=== PATIENT | female | born 1995 | race Caucasian/White ===

== ENCOUNTER → 2017-07-16 14:12 | Outpatient (CLI) | payer OTHER, SELFPAY ==
[2017-07-16 15:33] LABS: Absolute Lymphocyte Count 3.05 X10^3/ul (0.83-4.51); Absolute Neutrophil Count 3.1 X10^3/uL (2.0-7.7); Basophil# 0.02 X10^3/uL; Basophil% 0.3 % (0-1); Eosinophil# 0.11 X10^3/uL; Eosinophils% 1.6 % (0-5); Hematocrit 42.6 % (37-47); Hemoglobin 14.3 g/dl (12.0-15.0); Lymphocyte # 3.05 X10^3/ul (4.0); Lymphocyte % 43.3 % (19-41); Mean Corp Hgb Conc 33.6 g/gl (32-36); Mean Corpuscular Hgb 29.2 pg (27.0-32.0); Mean Corpuscular Volume 87.1 fL (81-99); Monocyte% 11.3 % (0-10); Neutrophil # 3.06 X10^3/uL (2.7-7.7); Neutrophil % 43.4 % (47-70); Platelet Count 241 K/mm3 (150-450); RBC Distribution Width CV 12.9 % (11.6-14.6); RBC Distribution Width SD 40.5 fl (35.1-43.9); Red Blood Count 4.89 M/mm3 (4.2-5.4); White Blood Count 7.1 K/mm3 (4.4-11.0)
[2017-07-16 15:35] LABS: POSITIVE COUNT NO; POSITIVE DIFFERENTIAL NO; POSITIVE MORPHOLOGY NO
[2017-07-16 16:43] LABS: Prolactin 5.2 ng/mL; T4 Free Direct 0.93 ng/dL (0.76-1.46); Thyroid Stim Hormone (TSH) 2.11 uIU/mL (0.358-3.74)
[2017-07-19 14:30] LABS: Vitamin D 1,25-Dihydroxy 35.8 pg/mL (19.9-79.3)
== END ==
PROVIDERS: Visit Provider Obstetrics & Gynecology
DX: N93.9 Abnormal uterine and vaginal bleeding, unspecified (principal)
CPT/HCPCS: 36415; 82652; 84146; 84439; 84443; 85025

== ENCOUNTER → 2017-08-09 13:37 | Outpatient (CLI) | payer OTHER, SELFPAY ==
--- NOTE | 2017-08-09 13:39 | US_ITS ---
STUDY: ULTRASOUND TRANSVAGINAL CLINICAL: Female, 22 years old. Pelvic pain TECHNIQUE: Transabdominal and Transvaginal COMPARISON: None. FINDINGS: Normal uterine size measuring 8.1 x 3.9 x 3.6 cm in maximal craniocaudal dimension. There are no myometrial masses. Normal endometrial thickness measuring 4 mm. There are no endometrial masses, and there is no fluid in the endometrial cavity. Normal uterine cervix. Normal right ovary, measuring 2.5 x 2.1 x 2.0 cm. There are multiple follicles without a dominant cyst. Normal left ovary, measuring 2.0 x 1.4 x 1.1 cm. There are multiple follicles without a dominant cyst. There is no free fluid in the pelvis. Polycystic ovary disease: No. Normal bladder contour. US/Transvaginal Non- IMPRESSION: Within normal limits. Electronically Signed: Kaden Palmer MD at 23:47 EDT , Service support ,
--- NOTE | 2017-08-09 13:39 | US_ITS ---
STUDY: ULTRASOUND TRANSVAGINAL CLINICAL: Female, 22 years old. Pelvic pain TECHNIQUE: Transabdominal and Transvaginal COMPARISON: None. FINDINGS: Normal uterine size measuring 8.1 x 3.9 x 3.6 cm in maximal craniocaudal dimension. There are no myometrial masses. Normal endometrial thickness measuring 4 mm. There are no endometrial masses, and there is no fluid in the endometrial cavity. Normal uterine cervix. Normal right ovary, measuring 2.5 x 2.1 x 2.0 cm. There are multiple follicles without a dominant cyst. Normal left ovary, measuring 2.0 x 1.4 x 1.1 cm. There are multiple follicles without a dominant cyst. There is no free fluid in the pelvis. Polycystic ovary disease: No. Normal bladder contour. US/Pelvic (Non ) IMPRESSION: Within normal limits. Electronically Signed: Kaden Palmer MD at 23:47 EDT , Service support ,
== END ==
PROVIDERS: Visit Provider Nurse Practitioner Women's Health
DX: R10.2 Pelvic and perineal pain (principal)
CPT/HCPCS: 76830; 76856; 93976

== ENCOUNTER 2018-12-08 13:23 | Emergency (ER) | payer OTHER, SELFPAY ==
[2018-12-08 13:24] VITALS: BP 117/73; PULSE 75; RESP 17; TEMP 36.8; O2SAT 98; BMI 27.1
[2018-12-08] MEDS: proCHLORPERazine 10 MG/2 ML Vial IV (13:56)
[2018-12-08] MEDS: DiphenhydrAMINE 50 MG/ML Syringe IV (13:57)
[2018-12-08] MEDS: 0.9% Normal Saline 1,000 ML 999 ML IV (13:57)
[2018-12-08] MEDS: Ketorolac 30 MG/ML Syringe IV (13:57)
--- NOTE | 2018-12-08 13:57 | ED.VIS.GEN ---
History of Present Illness Chief Complaint: Headache Informant: Patient Onset: Days Context: Gradual Onset Timing: Intermittent Current Severity: Moderate Maximum Severity: Moderate Narrative: Patient presents to the emergency department with headache. Patient has a history of migraine. She states this feels like her normal migraine. She did try her triptan at home with little improvement. She states throughout the day, she is had some increasing pressure behind both of her eyes. She does admit to nausea and vomiting. She denies any trauma. She denies any fevers or chills. She denies any other systemic symptoms. Prior similar symptoms: Yes Recent Illness/Hospitalization: No Past Medical History - Allergies and Home Meds Allergies/Adverse Reactions: Allergies No Known Allergies Allergy (Verified 12/08/18 13:24) Primary Care Physician: Olaf Villanueva MD [Primary Care Provider] - Prior records reviewed: Yes Past Medical History: - - Migraines Smoking Status: Never smoker Review of Systems General: Denies: Chills, Fever, Sweats Eyes: Denies: Visual changes - bilaterally, Diplopia ENT: Denies: Rhinorrhea, Sore throat Cardiovascular: Denies: Chest pain, Palpitations Respiratory: Denies: Dyspnea, Cough, Dyspnea on exertion Gastrointestinal: Reports: Nausea. Denies: Abdominal pain, Vomiting, Diarrhea, Melena, Hematochezia Genitourinary: Denies: Dysuria, Hematuria, Frequency Musculoskeletal: Denies: Back pain, Extremity Pain Skin: Denies: Rash, Wounds Neurological: Reports: Headache. Denies: Weakness, Numbness Psych: Denies: Depression Endocrine: Denies: Polyuria Physical Exam Vital Signs/Narrative: Vital Signs Temp Pulse Resp BP Pulse Ox 12/08/18 13:24 98.2 F 75 17 117/73 98 Inital Vital Signs reviewed: Yes General: Well nourished, Well developed, No Acute Distress Head: Normocephalic, Atraumatic Eyes: Perrl, EOMI ENT: Moist mucous membranes, No rhinorrhea Neck: Supple, Nontender Cardiovascular: Regular rate, Regular rhythm, No murmurs Respiratory: No distress, CTA bilaterally, Chest nontender Abdomen: Soft, Nontender, Nondistended, Normal bowel sounds Back: Nontender, Normal Inspection Extremities: Nontender, No edema Skin: Normal color, No rash Neurological: Alert, Oriented x3, Cranial nerves II-XII grossly intact, Normal Strength, Normal Sensation Psychological: Normal affect, Normal Mood Diagnostic/Tx/Re-eval - Medical Decision Making The patient presents with a normal migraine. Her examination is reassuring. She is not meningitic. She is not encephalopathic. IV was established. The patient was treated with migraine abortive medications. Within an hour, she had total resolution of her headache. At this point, I do feel that she is safe for outpatient therapy. She is comfortable with this plan of care. She will be discharged home. Impression 1. Migraine headache ED Disposition - Plan for ED Patient: Disposition: Home or Assisted Living Instructions: ED, Migraine (Classical) Referrals: Olaf Villanueva MD [Primary Care Provider] -
[2018-12-08 15:12] VITALS: BP 114/73; PULSE 75; RESP 16; O2SAT 99
== END 2018-12-08 15:12 | disposition home or self-care (01) ==
LOC: ED 13:51
PROVIDERS: Emergency Provider Emergency Medicine; Family Provider Family Medicine; PCP Family Medicine
DX: G43.909 Migraine, unspecified, not intractable, without status migrainosus (principal)
CPT/HCPCS: 96361; 96374; 96375; 99283

== ENCOUNTER 2021-08-03 14:13 | Outpatient (CLI) | payer OTHER, SELFPAY ==
[2021-08-08 12:01] LABS: Chlamydia By Nucleic Acid AMP Negative (Negative)
[2021-08-08 12:27] LABS: Gonococcus By Nucleic Acid AMP Negative (Negative)
[2021-08-09 21:37] LABS: HPV Reflexed? NOT INDICATED
== END 2021-08-03 23:59 | disposition home or self-care (01) ==
LOC: LABSPEC 14:14
PROVIDERS: PCP Family Medicine; Visit Provider Obstetrics & Gynecology
DX: Z12.4 Encounter for screening for malignant neoplasm of cervix (principal); Z11.3 Encounter for screening for infections with a predominantly sexual mode of transmission
CPT/HCPCS: 87491; 87591; 88175; G0145

== ENCOUNTER → 2023-03-11 | Outpatient (CLI) | payer OTHER, MEDICAID, SELFPAY ==
[2023-03-11 17:41] LABS: hCG Titer Quant., Serum 27504 mIU/mL (1-3)
== END | disposition home or self-care (01) ==
PROVIDERS: PCP Family Medicine; Referring Provider Nurse Practitioner Women's Health; Visit Provider Nurse Practitioner Women's Health
DX: N91.2 Amenorrhea, unspecified (principal)
CPT/HCPCS: 36415; 84702

== ENCOUNTER → 2023-03-15 | Outpatient (CLI) | payer OTHER, MEDICAID, SELFPAY ==
[2023-03-15 10:27] LABS: hCG Titer Quant., Serum 49958 mIU/mL (1-3)
== END | disposition home or self-care (01) ==
PROVIDERS: PCP Nurse Practitioner Family; Referring Provider Obstetrics & Gynecology; Visit Provider Obstetrics & Gynecology
DX: O20.9 Hemorrhage in early pregnancy, unspecified (principal); Z3A.00 Weeks of gestation of pregnancy not specified
CPT/HCPCS: 36415; 84702

== ENCOUNTER → 2023-03-18 | Outpatient (CLI) | payer OTHER, MEDICAID, SELFPAY ==
--- NOTE | 2023-03-18 07:57 | US_ITS ---
STUDY: FIRST TRIMESTER OBSTETRICAL ULTRASOUND REASON FOR EXAM: Female, 27 years old dating LMP: 01/01/2023 TECHNIQUE: Transabdominal and Transvaginal TECHNICAL QUALITY: Adequate. PRIOR ULTRASOUND: None. FINDINGS: There is visualization of a single gestational sac in a normal intrauterine position. The mean sac diameter (MSD) measures 2.44 cm, indicating an estimated gestational age (EGA) of 7 weeks, 3 days. The gestational sac shape is within normal limits. There is a visualized yolk sac. The yolk sac measures 0.55 cm. There is visualization of the placenta. There is visualization of a live embryo. The crown-rump length (CRL) measures 0.96 cm, indicating an estimated gestational age (EGA) of 7 weeks, 1 days. There is demonstrated cardiac activity with a heart rate of 120 bpm. The estimated gestation age (EGA) by LMP is 10 weeks, 6 days. The estimated date of delivery (TAMMIE) by LMP is 10/08/2023. The estimated gestation age (EGA) by US is 7 weeks, 2 days. The estimated date of delivery (TAMMIE) by US is 11/02/2023. The uterus measures 11.5 x 6.5 x 5.1 cm. There is no demonstrated uterine fibroid. The cervix is closed. The right ovary measures 3.8 x 2.3 x 2.2 cm. There is no right ovarian cyst. There is no visualized right adnexal mass or complex lesion. The left ovary measures 6.1 x 2.8 x 2.3 cm. There is a complex 2.6 x 2.5 x 2.2 cm cyst likely the corpus luteal cyst. There is minimal fluid in the cul de sac. US/Transvaginal w/Preg US IMPRESSION: Single live intrauterine at 7 weeks 2 days by current ultrasound with TAMMIE of 11/02/2023. Heart rate at 120 bpm. No suspicious sonographic findings. Electronically Signed: Marcin Stewart MD at 10:13 EST ,
== END | disposition home or self-care (01) ==
PROVIDERS: PCP Family Medicine; Referring Provider Nurse Practitioner Women's Health; Visit Provider Nurse Practitioner Women's Health
DX: Z34.90 Encounter for supervision of normal pregnancy, unspecified, unspecified trimester (principal)
CPT/HCPCS: 76817

== ENCOUNTER → 2023-04-10 | Outpatient (CLI) | payer OTHER, MEDICAID, SELFPAY ==
[2023-04-10 15:48] LABS: Absolute Lymphocyte Count 2.88 X10^3/uL (0.83-4.51); Absolute Neutrophil Count 7.4 X10^3/uL (2.0-7.7); Basophil# 0.03 X10^3/uL; Basophil% 0.3 % (0-1); Eosinophil# 0.07 X10^3/uL; Eosinophils% 0.6 % (0-5); Hematocrit 39.1 % (37-47); Lymphocyte # 2.88 X10^3/ul (0.83-4.51); Lymphocyte % 25.2 % (19-41); Mean Corp Hgb Conc 33.2 g/dL (32-36); Mean Corpuscular Hgb 28.3 pg (27.0-32.0); Mean Platelet Vol. 10.2 fl (6.2-12.0); Monocyte# 1.01 X10^3/uL; Monocyte% 8.8 % (0-10); NRBC Flagged by Analyzer 0 % (0-5); Neutrophil # 7.36 X10^3/uL (2.7-7.7); Neutrophil % 64.5 % (47-70); Platelet Count 264 K/mm3 (150-450); RBC Distribution Width CV 13.1 % (11.6-14.6); RBC Distribution Width SD 40.1 fl (35.1-43.9); White Blood Count 11.4 K/mm3 (4.4-11.0)
[2023-04-10 16:21] LABS: ALB/GLOB Ratio 0.8 RATIO (0.9-2.4); AST(SGOT) 29 U/L (15-37); Alanine Aminotransfer ALT/SGPT 52 U/L (13-56); Albumin, Serum 3.4 g/dL (3.2-5.0); Alkaline Phosphatase 80 U/L (45-117); Anion Gap 7 (5-15); BUN 6 mg/dL (7-18); BUN/Creat Ratio 11.7 RATIO (10-20); Chloride 108 mmol/L (98-107); Creatinine, Serum 0.51 mg/dL (0.55-1.02); EST Glomerular Filtration Rate 151 mL/min (>60); Est Glom Filt Rate - Afr Amer 183 mL/min (>60); Globulin 4.3 g/dL (2.2-4.2); Glucose 82 mg/dL (74-106); Potassium 3.7 mmol/L (3.5-5.1); Protein, Total 7.7 g/dL (6.4-8.2); Sodium Level 139 mmol/L (136-145)
[2023-04-10 16:24] LABS: Hemoglobin A1c 4.8 % (3.8-5.6)
[2023-04-10 17:19] LABS: HIV - WCH Non-Reactive (Nonreactive); Hepatitis B Surface Antigen Non-Reactive (Nonreactive); Hepatitis C Antibody Non-Reactive (Nonreactive); Rubella IgG Reactive (Nonreactive); Syphilis Antibodies Non-reactive
[2023-04-15 08:07] LABS: Chlamydia By Nucleic Acid AMP Negative (Negative); Gonococcus By Nucleic Acid AMP Negative (Negative)
== END | disposition home or self-care (01) ==
PROVIDERS: PCP Nurse Practitioner Family; Referring Provider Registered Nurse; Visit Provider Registered Nurse
DX: O09.90 Supervision of high risk pregnancy, unspecified, unspecified trimester (principal)
CPT/HCPCS: 36415; 80053; 83036; 85025; 86703; 86762; 86780; 86803; 86850; 86900; 86901; 87086; 87088; 87340; 87491; 87591

== ENCOUNTER → 2023-05-10 | Outpatient (CLI) | payer OTHER, MEDICAID, SELFPAY ==
--- OUTSIDE RECORDS SUMMARY | 2023-05-10 16:50 | XMS RPT_ITS | CCD ---
Author Name Unknown Address [facility] [place] [address] Organization [facility] Care Team Providers Care Senior Project Accountant Name Role Phone YELENA PAULA Primary Care Unavailable YELENA PAULA Attending Unavailable VACCARIELLO, HALIMA Consulting Unavailable VACCARIELLO, HALIMA Referring Unavailable YELENA PAULA Admitting Unavailable PROVIDER, UNKNOWN Consulting Unavailable PROVIDER, UNKNOWN Consulting Unavailable PROVIDER, UNKNOWN Consulting Unavailable CK HORN DO Admitting Unavailable CK HORN DO Primary Care Unavailable CK HORN DO Attending Unavailable VACCARIELLO, HALIMA Consulting Unavailable VACCARIELLO, HALIMA Referring Unavailable PROVIDER, UNKNOWN Consulting Unavailable PROVIDER, UNKNOWN Consulting Unavailable PROVIDER, UNKNOWN Consulting Unavailable MADDISON SALAMANCA Admitting Unavailable MADDISON SALAMANCA Primary Care Unavailable MADDISON SALAMANCA Attending Unavailable VACCARIELLO, HALIMA Consulting Unavailable PROVIDER, UNKNOWN Consulting Unavailable PROVIDER, UNKNOWN Consulting Unavailable PROVIDER, UNKNOWN Consulting Unavailable NICOLE JENNINGS Admitting Unavailable NICOLE JENNINGS Primary Care Unavailable NICOLE JENNINGS Attending Unavailable VACCARIELLO, HALIMA Consulting Unavailable VACCARIELLO, HALIMA Referring Unavailable PROVIDER, UNKNOWN Consulting Unavailable PROVIDER, UNKNOWN Consulting Unavailable PROVIDER, UNKNOWN Consulting Unavailable Results Test Name Value Interpretation Reference Range Facil ity Encounters Encounter Date Encounter Type Care Provider Facility Start: 03-13-2023 ambulatory MADDISON SALAMANCA [facility] Start: 03-13-2023 End: 03-13-2023 Emergency department patient visit NICOLE JENNINGS [facility] Start: 10-25-2022 End: 10-25-2022 Emergency department patient visit CK LERNER [facility] Start: 09-03-2022 End: 09-03-2022 Emergency department patient visit YELENA PAULA [facility] Payers Date Payer Category Payer Unknown [id number] [id number] 1995 Unknown [id number] [id number] 1995 Unknown [id number] [id number] [id number] 1995 Unknown [id number] [id number] Unknown [id number] Unknown [id number] Summary Purpose Family History No Family History Records FoundNo Family History Records FoundNo Family History Records FoundNo Family History Records Found Advance Directives No Advanced Directives Records FoundNo Advanced Directives Records FoundNo Advanced Directives Records FoundNo Advanced Directives Records Found Additional Source Comments INFORMATION SOURCE (unrecogn ized section and content) DATE CREATED AUTHOR AUTHOR'S ORGANIZ ATION 02/25/2020 [facility] DATE CREATED AUTHOR AUTHOR'S ORGANIZ ATION 10/05/2021 [facility] DATE CREATED AUTHOR AUTHOR'S ORGANIZ ATION 03/14/2023 [facility] FOR RECORDS PERTAINING TO PATIENTS WHO ARE OR HAVE BEEN ENROLLED IN A CHEMICAL DEPENDENCY/SUBSTANCEABUSE PROGRAM, SOME INFORMATION MAY BE OMITTED. This clinical summary was aggregated from multiple sources. Caution should be exercised in using it in the provision of clinical care. This summary normalizes information from multiple sources, and as a consequence, information in this document may materially change the coding, format and clinical context of patient data. In addition, data may be omitted in some cases. CLINICAL DECISIONS SHOULD BE BASED ON THE PRIMARY CLINICAL RECORDS. [facility]. provides no warranty or guarantee of the accuracy or completeness of information in this document.
== END | disposition home or self-care (01) ==
PROVIDERS: PCP Nurse Practitioner Family; Referring Provider Registered Nurse; Visit Provider Registered Nurse
DX: Z00.00 Encounter for general adult medical examination without abnormal findings (principal)
CPT/HCPCS: 36415

== ENCOUNTER → 2023-08-09 | Outpatient (CLI) | payer MEDICAID, SELFPAY ==
[2023-08-09 13:12] LABS: Absolute Lymphocyte Count 2.27 X10^3/uL (0.83-4.51); Absolute Neutrophil Count 7.2 X10^3/uL (2.0-7.7); Basophil# 0.03 X10^3/uL; Basophil% 0.3 % (0-1); Eosinophil# 0.06 X10^3/uL; Eosinophils% 0.6 % (0-5); Hematocrit 35.5 % (37-47); Hemoglobin 11.3 g/dL (12.0-15.0); Lymphocyte # 2.27 X10^3/ul (0.83-4.51); Lymphocyte % 21.6 % (19-41); Mean Corp Hgb Conc 31.8 g/dL (32-36); Mean Corpuscular Hgb 27.2 pg (27.0-32.0); Mean Corpuscular Volume 85.5 fL (81-99); Mean Platelet Vol. 11.1 fl (6.2-12.0); Monocyte# 0.83 X10^3/uL; Monocyte% 7.9 % (0-10); NRBC Flagged by Analyzer 0 % (0-5); Neutrophil # 7.23 X10^3/uL (2.7-7.7); Neutrophil % 68.6 % (47-70); Platelet Count 254 K/mm3 (150-450); Red Blood Count 4.15 M/mm3 (4.2-5.4); White Blood Count 10.5 K/mm3 (4.4-11.0)
[2023-08-09 13:29] LABS: Glucose Challenge Gest 1H 50g 130 mg/dL (70-140)
[2023-08-09 14:03] LABS: HIV - WCH Non-Reactive (Nonreactive); Syphilis Antibodies Non-reactive
== END | disposition home or self-care (01) ==
LOC: LAB 12:23
PROVIDERS: PCP Nurse Practitioner Family; Referring Provider Registered Nurse; Visit Provider Registered Nurse
DX: Z34.90 Encounter for supervision of normal pregnancy, unspecified, unspecified trimester (principal)
CPT/HCPCS: 36415; 82950; 85025; 86703; 86780

== ENCOUNTER → 2023-08-20 | Outpatient (CLI) | payer MEDICAID, SELFPAY ==
[2023-08-20 12:42] LABS: ROM Internal Control Test YES-OK TO RESULT pt. (Internal QC); ROM Patient Test Negative (Negative)
== END | disposition home or self-care (01) ==
LOC: LABSPEC 12:18
PROVIDERS: PCP Nurse Practitioner Family; Referring Provider Obstetrics & Gynecology; Visit Provider Obstetrics & Gynecology
DX: N89.8 Other specified noninflammatory disorders of vagina (principal)
CPT/HCPCS: 84112

== ENCOUNTER 2023-09-03 12:00 | Outpatient (CLI) | payer MEDICAID, SELFPAY ==
[2023-09-03 12:15] VITALS: BMI 42.4
--- NOTE | 2023-09-13 02:58 | OB.TRI.PN ---
Progress Notes Date of Service: 09/03/23 Progress Note: Patient presents for triage evaluation secondary to decreased movement FHT: 140 Moderate variability reactive no decelerations category I tracing [place]: no regular Contractions Assessment and plan: decreased movement now feeling Reactive NST, reassuring maternal and status patient discharged to home to follow-up as sscheudled. See problem list details for additional plan information. Charges/Coding Procedures Urinary/Genital 52xxx-59xxx: 26713-17 non-stress test Interp
== END 2023-09-03 13:25 | disposition home or self-care (01) ==
LOC: WPOUT 12:04 → WP 12:05
PROVIDERS: PCP Nurse Practitioner Family; Referring Provider Advanced Practice Midwife; Visit Provider Advanced Practice Midwife
DX: O36.8190 Decreased fetal movements, unspecified trimester, not applicable or unspecified (principal); Z3A.00 Weeks of gestation of pregnancy not specified
CPT/HCPCS: 59025; 59050; 99221; G0378

== ENCOUNTER 2023-09-12 11:55 | Outpatient (CLI) | payer MEDICAID, SELFPAY ==
[2023-09-12 12:17] VITALS: BP 129/66; PULSE 109; RESP 15; TEMP 36.8; O2SAT 99
[2023-09-12 12:18] VITALS: PULSE 112; O2SAT 98
[2023-09-12 12:21] VITALS: BP 128/67; PULSE 107
[2023-09-12 13:05] VITALS: BMI 43.2
[2023-09-12 14:27] LABS: Mucous, Urine 0 SEEN /hpf (<or=2+); Red Blood Cells-Urine 0 SEEN /hpf (0-5)
[2023-09-12 14:30] LABS: Color, Urine Yellow (Yellow); Glucose, Dipstick Normal (Normal); Ketone-Dipstick 5 mg/dl (Negative); Leukocyte Esterase-Dipstick 100 /ul (Negative); Nitrite-Dipstick Negative (Negative); Occult Blood-Urine Negative /ul (Negative); Protein-Dipstick 15 mg/dl (Negative); Urine Bilirubin Dipstick Negative (Negative); Urine Clarity Cloudy (Clear); Urine Urobilinogen 1 mg/dl (Normal)
[2023-09-12 14:36] LABS: Amorphous Sediment 1+; Bacteria 3+ /hpf (None Seen); Squamous Epithelial Cells - UA 0-5 SEEN /hpf (5-10); White Blood Cells 0-5 SEEN /hpf (0-5)
--- NOTE | 2023-09-12 21:03 | OB.TRI.PN ---
Progress Notes Progress Note: Patient presents for triage evaluation secondary to contractions, seen and no dilation FHT: 130 Moderate variability reactive no decelerations category I tracing [place]: irritability Contractions Assessment and plan: threatened labor no cervical change no dilation, ua and culture sent. Reactive NST, reassuring maternal and status patient discharged to home to follow-up as scheduled. See problem list details for additional plan information. Laboratory Studies: Laboratory Tests 09/12/23 Range/Units 14:15 Urine Color Yellow (Yellow) Urine Clarity Cloudy (Clear) Urine pH 6.0 (5.0 - 8.0) Ur Specific [place] 1.020 (1.002-1.030) Urine Protein 15 H (Negative) mg/dl Urine Glucose (UA) Normal (Normal) mg/dl Urine Ketones 5 H (Negative) mg/dl Urine Occult Blood Negative (Negative) /ul Urine Nitrite Negative (Negative) Urine Bilirubin Negative (Negative) mg/dL Urine Urobilinogen 1 H (Normal) mg/dl Ur Leukocyte Esterase 100 H (Negative) /ul Urine RBC 0 SEEN (0-5) /hpf Urine WBC 0-5 SEEN (0-5) /hpf Ur Squamous Epith Cells 0-5 SEEN (5-10) /hpf Amorphous Sediment 1+ Urine Bacteria 3+ (None Seen) /hpf Urine Mucus 0 SEEN (<or=2+) /hpf Charges/Coding Procedures Urinary/Genital 52xxx-59xxx: 34606-75 non-stress test Interp
== END 2023-09-12 14:20 | disposition home or self-care (01) ==
LOC: WPOUT 12:02 → WP 12:03
PROVIDERS: PCP Nurse Practitioner Family; Referring Provider Obstetrics & Gynecology; Visit Provider Obstetrics & Gynecology
DX: O47.9 False labor, unspecified (principal); Z3A.00 Weeks of gestation of pregnancy not specified
CPT/HCPCS: 59025; 59050; 81001; 99221; G0378

== ENCOUNTER 2023-09-25 10:01 | Outpatient (CLI) | payer MEDICAID, SELFPAY ==
[2023-09-25 10:25] VITALS: BMI 43.4
[2023-09-25 10:33] VITALS: RESP 16; TEMP 37.1
[2023-09-25 10:34] VITALS: BP 119/64; PULSE 96
[2023-09-25 10:35] VITALS: PULSE 96; O2SAT 96
[2023-09-25 10:49] VITALS: BP 121/68; PULSE 90
[2023-09-25 11:03] LABS: Hematocrit 32.3 % (37-47); Hemoglobin 10.3 g/dL (12.0-15.0); Mean Corp Hgb Conc 31.9 g/dL (32-36); Mean Corpuscular Hgb 25.6 pg (27.0-32.0); Mean Corpuscular Volume 80.1 fL (81-99); Mean Platelet Vol. 11.6 fl (6.2-12.0); Platelet Count 213 K/mm3 (150-450); RBC Distribution Width SD 40.8 fl (35.1-43.9); Red Blood Count 4.03 M/mm3 (4.2-5.4); White Blood Count 7.9 K/mm3 (4.4-11.0)
[2023-09-25 11:04] VITALS: BP 113/67; PULSE 100
[2023-09-25 11:07] LABS: Protein, Urine (Random) 6.5 mg/dL (<11.9); Protein:Creat Ratio 153 mg/g CRE (0-200)
[2023-09-25 11:20] VITALS: BP 125/77; PULSE 95
[2023-09-25 11:30] LABS: AST(SGOT) 26 U/L (15-37); Alanine Aminotransfer ALT/SGPT 28 U/L (13-56); Creatinine, Serum 0.46 mg/dL (0.55-1.02); EST Glomerular Filtration Rate 170 mL/min (>60); Est Glom Filt Rate - Afr Amer 205 mL/min (>60); Estimated Creatinine Clearance 202.47 ml/min; Uric Acid 2.8 mg/dL (2.6-6.0)
--- NOTE | 2023-09-25 20:24 | OB.TRI.HP_ITS ---
HPI - General HPI Narrative KELSEY KOWALSKI, is a 28 y/o @ 34 weeks 5 days who presents to L&D with a mild headache. She has a history of section and h/o pre-e in prior and was nervous she could be developing pre-e again. Her serial blood pressures were all normal. She denies RUQ pain or visual changes. Maternal Data Information TAMMIE Calculator Estimated Delivery Date Method Current WG Current Estimate 11/01/23 Ultrasound #1 34w 5d PFSH PFSH Medical History Pelvic pain Blood in stool Anxiety and depression Home Medications ?Medication ?Instructions ?Recorded ?Last Taken ?Type PNV-iron 29 mg-folic acid 1 1 pkg PO DAILY 04/05/23 09/22/23 08:00 History [id number] 200 mg oral combo 1 pkg pack aspirin 81 mg tablet,delayed 81 mg PO DAILY 04/05/23 09/24/23 08:00 History release 81 mg citalopram 20 mg tablet (Celexa) 20 mg PO QDAY #90 tabs 09/04/23 Unknown Rx Allergy/AdvReac Type Severity Reaction Status Date / Time No Known Allergies Allergy Verified 09/25/23 08:58 Family History Grandmother Lung cancer Grandfather Pancreatic cancer Surgical History delivery delivered Social History adopted: No household members: significant other number of children: 1 current occupational status: employed 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 current occupational exposures/hazards: No pets and animals: Yes (Not managing litterbox) pets and animals: cat(s) history of recent travel: No sexually active: Yes Smoking Status: Never smoker alcohol intake: current alcohol intake frequency: a few times a month details: not while substance use type: does not use well-balanced diet: daily or most days caffeine: No eating out: rarely or never during the past year weight has: remained stable what type of physical activity do you participate in: none joellen/taoist: None seatbelt use: always do you feel safe at home: Yes additional social history: BF Javier- rigging loft mechanic History 2 Elective abortions Hx Para 1 Spontaneous abortions Hx # Term Pregnancies Ectopic pregnancies Hx # Pregnancies Multiple births # of living children 1 Past Pregnancies Del. Date Name GA/Weeks Outcome Route Bth Weight Gen Labor Lgth Anesthesia Del Silasatn Provider FOB 03/01/14 Bettie 41 live - full term [facility] Visit Details Expected Delivery Route/Plan patient counseled regarding risks/benefits of trial of labor versus repeat . ACOG/uptodate education given to patient. [] % likelihood of success per calculator TOLAC consent form signed: [] Labor Preferences- CB/BF classes: no labor support person: Javier labor intervention preferences: [] pain management options preferred: RLTCS cut cord/dad catch: [] : no PP control planned: discussed discussed possible routes of delivery and associated risks: [] special requests: [] Plans Covid status: + in Mar 2023, taking ASA Flu vaccine: declines Tdap vaccine: [] Rhogam: na LARC form signed: yes Problem list reviewed and updated with the most current plan of care details and appropriate orders placed. Relevant counseling for the gestational age provided. Continue routine care and follow up unless otherwise noted in visit notes/problem list details OB Flowsheet Initial Weight: 195 lb Date -?-?-?-?--?-?-?-?-?-?-?-?- EGA Weight BP Urine Prot -?-?-?-?-?-?-?-?-?-?-?-?- Glucose FHR FuHt Pres Dilation -?-?-?-?-?-?-?-?-?-?-?-?- Effaced St Visit Note 04/10/23 -?-?-?-?-?-?-?-?-?-?-?-?- 10w 5d 195 lb 8 oz (+8 oz) 118/82 -?-?-?-?-?-?-?-?-?-?-?-?- 180 -?-?-?-?-?-?-?-?-?-?-?-?- LC- CRL con with LMP. declines nipt. hx of PEC, baseline labs ordered. BMI 36, hbga1c ordered. start LDA for covid. 05/10/23 -?-?-?-?-?-?-?-?-?-?-?-?- 15w 0d 202 lb (+7 lb) 126/70 Negative -?-?-?-?-?-?-?-?-?-?-?-?- Negative 146 -?-?-?-?-?-?-?-?-?-?-?-?- LC- no vb/crampi ng. accepts afp.mfm ultrasound ordered. 07/12/23 -?-?-?-?-?-?-?-?-?-?-?-?- 24w 0d 215 lb (+20 lb) 128/72 Negative -?-?-?-?-?-?-?-?-?-?-?-?- Negative 140 24 -?-?-?-?-?-?-?-?-?-?-?-?- LC- no vb/ctx/lo f. lopez lee. scheduling additional cardiac views after obtaining new insurance in july. desires repeat c/s. again reiterated needing to schedule appt with physician. 08/09/23 -?-?-?-?-?-?-?-?-?-?-?-?- 28w 0d 222 lb 2 oz (+27 lb 2 oz) 110/70 Negative -?-?-?-?-?-?-?-?-?-?-?-?- Negative 150 28 -?-?-?-?-?-?-?-?-?-?-?-?- kw- no vb/lof/ct x. lopez lee. had labs-pending. R CS scheduled with SM 10/27. 08/20/23 -?-?-?-?-?-?-?-?-?-?-?-?- 29w 4d 221 lb (+26 lb) 221 lb (+26 lb) 132/83 132/83 Negative -?-?-?-?-?-?-?-?-?-?-?-?- Negative 140 -?-?-?-?-?-?-?-?-?-?-?-?- SM- co crmaping and pelvic pressure questionable lof, rom plus sent and negative bedsife fany 15 and monitoring and no ctx seen 09/04/23 -?-?-?-?-?-?-?-?-?-?-?-?- 31w 5d 226 lb 2 oz (+31 lb 2 oz) 122/64 Negative -?-?-?-?-?-?-?-?-?-?-?-?- Negative 154 31 -?-?-?-?-?-?-?-?-?-?-?-?- MH-No VB, LOF. G ood FM. Worsening anxiety. Wants to restart her celexa 09/18/23 -?-?-?-?-?-?-?-?-?-?-?-?- 33w 5d 227 lb 6 oz (+32 lb 6 oz) 118/78 Negative -?-?-?-?-?-?-?-?-?-?-?-?- Negative 155 34 -?-?-?-?-?-?-?-?-?-?-?-?- JV- still needs follow up scan of heart. will request growth also ROS Constitutional Constitutional: Reports systems reviewed and no addt'l complaints, except as documented Gastrointestinal Gastrointestinal: Denies bloating, constipation, cramping, diarrhea, nausea or vomiting Genitourinary Genitourinary: Reports other Details: Denies vaginal odor, vaginal bleeding, or vaginal discharge ; Denies difficulty urinating or flank pain Physical Exam HEENT normocephalic Resp normal respiratory effort and normal air movement no CVA tenderness Extremity normal to inspection General Extremity: edema bilateral (trace ) NST FHR Rate Baby A Baseline: 140 Variability:: Moderate Accelerations:: 15 x 15 Decelerations:: None NST Reactive:: Yes FHR Category:: Category I Assessment & Plan (1) Anxiety: COMMENT: worsening sx. Restart celexa (2) Threatened labor: (3) delivery delivered: COMMENT: d/t to failed IOL with PEC. 2013 (4) Hx of pre-eclampsia in prior , currently : COMMENT: baseline labs- normal. (5) Obesity: COMMENT: hbga1c healthy weight gain in (6) COVID: COMMENT: asa 81mg daily (7) Hx of section: COMMENT: desires repeat cs 07/11. RLTCS scheduled for 10/27 @ 7:15 with SM d/t failure to progress IOL with PEC. 2013 (8) Supervision of high-risk : QUALIFIERS: Trimester: third trimester Qualified Code(s): O09.93 - Supervision of high risk , unspecified, third trimester COMMENT: [id number], TAMMIE 11/01/23 PC Bettie BF/ESTER Herrera (9) : QUALIFIERS: Weeks of gestation: 33 weeks Qualified Code(s): Z3A.33 - 33 weeks gestation of COMMENT: normal anatomy, discussed genetic & carrier testing (10) Hx of depression, currently : COMMENT: currently stable. Restarted celexa for anxiety. (11) Infertility: (12) Headache in : COMMENT: labs and bp's normal in triage 09/25/23 PLAN: pt encouraged to drink more water and take tylenol reassured that there are no signs of symptoms of pre-e at this time but to continue monitoring for symptoms and call if has visual changes, ruq pain or worsening headache not resolved with rest, hydration, and tylenol. Charges/Coding Multi Select Codes Visit Charges Office Visit/Consults: 34417 OV L3 Est 20min Urinary/Genital Urinary/Genital CPT Codes: 78049-21 non-stress test Interp
== END 2023-09-25 11:30 | disposition home or self-care (01) ==
LOC: WPOUT 10:14 → WP 10:16
PROVIDERS: PCP Nurse Practitioner Family; Referring Provider Obstetrics & Gynecology; Visit Provider Obstetrics & Gynecology
DX: O47.03 False labor before 37 completed weeks of gestation, third trimester (principal); O99.343 Other mental disorders complicating pregnancy, third trimester; F41.9 Anxiety disorder, unspecified; F32.A Depression, unspecified; Z3A.34 34 weeks gestation of pregnancy; Z79.82 Long term (current) use of aspirin; Z79.899 Other long term (current) drug therapy; Z86.16 Personal history of COVID-19
CPT/HCPCS: 36415; 59025; 59050; 82565; 82570; 84156; 84450; 84460; 84550; 85027; 99221; G0378

== ENCOUNTER 2023-09-27 19:36 | Outpatient (CLI) | payer MEDICAID, SELFPAY ==
[2023-09-27 19:58] VITALS: PULSE 108; O2SAT 97
[2023-09-27 20:04] VITALS: BP 118/65; PULSE 102
[2023-09-27 20:06] VITALS: BMI 43.5
[2023-09-27 20:46] LABS: ROM Internal Control Test YES-OK TO RESULT pt. (Internal QC); ROM Patient Test Negative (Negative); Record Kit Lot#, ROM+ K1866
--- NOTE | 2023-09-27 22:19 | OB.TRI.PN ---
Progress Notes Date of Service: 09/27/23 Progress Note: Patient presents for triage evaluation secondary to threatened PTL FHT: 140 Moderate variability reactive no decelerations category I tracing [place]: no regular Contractions Assessment and plan: threatened ptl negative rom plus no cervicla change Reactive NST, reassuring maternal and status patient discharged to home to follow-up as scheudled. See problem list details for additional plan information. Laboratory Studies: Laboratory Tests 09/27/23 Range/Units 20:15 Vag Amniotic Fld Detect Negative (Negative) Charges/Coding Procedures Urinary/Genital 52xxx-59xxx: 21855-50 non-stress test Interp
== END 2023-09-27 21:25 | disposition home or self-care (01) ==
LOC: WPOUT 19:44 → WP 19:46
PROVIDERS: PCP Nurse Practitioner Family; Referring Provider Obstetrics & Gynecology; Visit Provider Obstetrics & Gynecology
DX: O47.9 False labor, unspecified (principal); Z3A.00 Weeks of gestation of pregnancy not specified
CPT/HCPCS: 59025; 59050; 84112; 99221; G0378

== ENCOUNTER → 2023-10-07 | Outpatient (CLI) | payer MEDICAID, SELFPAY | END | disposition home or self-care (01) | LOC: LABSPEC 12:18 | PROVIDERS: PCP Nurse Practitioner Family; Referring Provider Advanced Practice Midwife; Visit Provider Advanced Practice Midwife | DX: O09.93 Supervision of high risk pregnancy, unspecified, third trimester (principal); Z3A.00 Weeks of gestation of pregnancy not specified | CPT/HCPCS: 87081 ==

== ENCOUNTER 2023-10-08 07:55 | Outpatient (CLI) | payer MEDICAID, SELFPAY ==
[2023-10-08 08:17] VITALS: PULSE 101; O2SAT 98
[2023-10-08 08:18] VITALS: BP 121/71; PULSE 102; BMI 44.1
[2023-10-08 08:54] LABS: ROM Internal Control Test YES-OK TO RESULT pt. (Internal QC); ROM Patient Test Negative (Negative)
[2023-10-08 08:56] LABS: Record Kit Lot#, ROM+ K1866
--- NOTE | 2023-10-08 09:07 | OB.TRI.PN ---
Progress Notes Date of Service: 10/08/23 Progress Note: Patient presents for triage evaluation secondary to vaginal discharge FHT: 130 Moderate variability reactive no decelerations category I tracing [place]: irregular Contractions Assessment and plan: neg ROM, Reactive NST, reassuring maternal and status patient discharged to home to follow-up in the office. See problem list details for additional plan information. Laboratory Studies: Laboratory Tests 10/08/23 Range/Units 08:10 Vag Amniotic Fld Detect Negative (Negative) Charges/Coding Multi Select Codes Urinary/Genital Urinary/Genital CPT Codes: 18727-50 non-stress test Interp Assessment & Plan (1) Vaginal discharge during : COMMENT: ROM neg, 0/thick, d/c home (2) Headache in : COMMENT: labs and bp's normal in triage 09/25/23 (3) Anxiety: COMMENT: worsening sx. Restart celexa (4) Threatened labor: (5) delivery delivered: COMMENT: d/t to failed IOL with PEC. 2013 (6) Hx of pre-eclampsia in prior , currently : COMMENT: baseline labs- normal. (7) Obesity: COMMENT: hbga1c healthy weight gain in (8) COVID: COMMENT: asa 81mg daily (9) Hx of section: COMMENT: desires repeat cs 07/11. RLTCS scheduled for 10/27 @ 7:15 with SM d/t failure to progress IOL with PEC. 2013 (10) Supervision of high-risk : QUALIFIERS: Trimester: third trimester Qualified Code(s): O09.93 - Supervision of high risk , unspecified, third trimester COMMENT: [id number], TAMMIE 11/01/23 RITIKA Alexandre BF/ESTER Herrera (11) : QUALIFIERS: Weeks of gestation: 36 weeks Qualified Code(s): Z3A.36 - 36 weeks gestation of COMMENT: normal anatomy, discussed genetic & carrier testing (12) Hx of depression, currently : COMMENT: currently stable. Restarted celexa for anxiety. (13) Infertility:
== END 2023-10-08 09:15 | disposition home or self-care (01) ==
LOC: WPOUT 08:15 → WP 08:16
PROVIDERS: PCP Nurse Practitioner Family; Visit Provider Advanced Practice Midwife
DX: O99.891 Other specified diseases and conditions complicating pregnancy (principal); N89.8 Other specified noninflammatory disorders of vagina; R51.9 Headache, unspecified; O99.343 Other mental disorders complicating pregnancy, third trimester; F41.9 Anxiety disorder, unspecified; Z79.899 Other long term (current) drug therapy; Z3A.36 36 weeks gestation of pregnancy
CPT/HCPCS: 59025; 59050; 84112; 99221; G0378

== ENCOUNTER 2023-10-13 09:15 | Outpatient (CLI) | payer MEDICAID, SELFPAY ==
[2023-10-13 09:32] VITALS: BP 118/74; PULSE 105; PULSE 98; RESP 16; TEMP 36.7; O2SAT 98
[2023-10-13 09:49] VITALS: BMI 44.1
[2023-10-13] MEDS: Lactated Ringers 1,000 ML 999 ML IV (10:05)
[2023-10-13] MEDS: Ondansetron 4 MG/2 ML Vial IV (10:21)
[2023-10-13] MEDS: Loperamide 2 MG Capsule 4 MG PO (10:24)
--- NOTE | 2023-10-16 07:54 | OB.TRI.PN_ITS ---
Progress Notes Date of Service: 10/13/23 Progress Note: Patient presents for triage evaluation secondary to contractions, nausea and diarrhea FHT: 120 Moderate variability reactive no decelerations category I tracing [place]: irregular mild Contractions Assessment and plan: IV fluid bolus, IV zofran, no cervical change/dilation, Reactive NST, reassuring maternal and status patient discharged to home to follow-up in the office. See problem list details for additional plan information. Charges/Coding Multi Select Codes Urinary/Genital Urinary/Genital CPT Codes: 94215-40 non-stress test Interp Assessment & Plan (1) Vaginal discharge during : COMMENT: ROM neg, 0/thick, d/c home (2) Headache in : COMMENT: labs and bp's normal in triage 09/25/23 (3) Anxiety: COMMENT: worsening sx. Restart celexa (4) Threatened labor: (5) delivery delivered: COMMENT: d/t to failed IOL with PEC. 2013 (6) Hx of pre-eclampsia in prior , currently : COMMENT: baseline labs- normal. (7) Obesity: COMMENT: hbga1c healthy weight gain in (8) COVID: COMMENT: asa 81mg daily (9) Hx of section: COMMENT: desires repeat cs 07/11. RLTCS scheduled for 10/27 @ 7:15 with SM d/t failure to progress IOL with PEC. 2013 (10) Supervision of high-risk : QUALIFIERS: Trimester: third trimester Qualified Code(s): O09.93 - Supervision of high risk , unspecified, third trimester COMMENT: [id number], TAMMIE 11/01/23 RITIKA Alexandre BF/ESTER Herrera (11) : QUALIFIERS: Weeks of gestation: 37 weeks Qualified Code(s): Z3A.37 - 37 weeks gestation of COMMENT: GBS neg, normal anatomy, discussed genetic & carrier testing (12) Hx of depression, currently : COMMENT: currently stable. Restarted celexa for anxiety. (13) Infertility:
== END 2023-10-13 11:30 | disposition home or self-care (01) ==
LOC: WPOUT 09:23 → WP 09:24
PROVIDERS: PCP Nurse Practitioner Family; Referring Provider Advanced Practice Midwife; Visit Provider Advanced Practice Midwife
DX: O47.1 False labor at or after 37 completed weeks of gestation (principal); O99.891 Other specified diseases and conditions complicating pregnancy; R11.0 Nausea; R19.7 Diarrhea, unspecified; Z3A.37 37 weeks gestation of pregnancy
CPT/HCPCS: 96360; 59025; 59050; 99221; J7120; G0378; J2405

== ENCOUNTER → 2023-10-21 | Outpatient (CLI) | payer MEDICAID, SELFPAY ==
[2023-10-21 15:02] LABS: Absolute Lymphocyte Count 2.16 X10^3/uL (0.83-4.51); Absolute Neutrophil Count 5.3 X10^3/uL (2.0-7.7); Basophil# 0.02 X10^3/uL; Basophil% 0.2 % (0-1); Eosinophil# 0.05 X10^3/uL; Eosinophils% 0.6 % (0-5); Hematocrit 32.9 % (37-47); Hemoglobin 10.1 g/dL (12.0-15.0); Lymphocyte # 2.16 X10^3/ul (0.83-4.51); Lymphocyte % 25.1 % (19-41); Mean Corp Hgb Conc 30.7 g/dL (32-36); Mean Corpuscular Hgb 24.2 pg (27.0-32.0); Mean Corpuscular Volume 78.7 fL (81-99); Mean Platelet Vol. 11.6 fl (6.2-12.0); Monocyte# 1.03 X10^3/uL; NRBC Flagged by Analyzer 0 % (0-5); Neutrophil # 5.28 X10^3/uL (2.7-7.7); Neutrophil % 61.5 % (47-70); Platelet Count 232 K/mm3 (150-450); RBC Distribution Width CV 15.1 % (11.6-14.6); Red Blood Count 4.18 M/mm3 (4.2-5.4); White Blood Count 8.6 K/mm3 (4.4-11.0)
[2023-10-21 15:35] LABS: ALB/GLOB Ratio 0.7 RATIO (0.9-2.4); AST(SGOT) 27 U/L (15-37); Alanine Aminotransfer ALT/SGPT 24 U/L (13-56); Albumin, Serum 2.8 g/dL (3.2-5.0); Alkaline Phosphatase 176 U/L (45-117); Anion Gap 8 (5-15); BUN 7 mg/dL (7-18); BUN/Creat Ratio 12.9 RATIO (10-20); Calcium,Total 9.2 mg/dL (8.5-10.1); Chloride 109 mmol/L (98-107); Creatinine, Serum 0.54 mg/dL (0.55-1.02); EST Glomerular Filtration Rate 141 mL/min (>60); Est Glom Filt Rate - Afr Amer 171 mL/min (>60); Globulin 4.2 g/dL (2.2-4.2); Glucose 75 mg/dL (74-106); Potassium 3.9 mmol/L (3.5-5.1); Sodium Level 139 mmol/L (136-145)
== END | disposition home or self-care (01) ==
LOC: PAVLAB 14:37
PROVIDERS: PCP Nurse Practitioner Family; Referring Provider Obstetrics & Gynecology; Visit Provider Obstetrics & Gynecology
DX: O26.899 Other specified pregnancy related conditions, unspecified trimester (principal); O21.9 Vomiting of pregnancy, unspecified; R19.7 Diarrhea, unspecified; Z3A.00 Weeks of gestation of pregnancy not specified
CPT/HCPCS: 36415; 80053; 85025

== ENCOUNTER 2023-10-28 05:18 | Inpatient (IN) | payer MEDICAID, SELFPAY ==
[2023-10-28] VITALS (18 sets, daily range): BP systolic 89–131; BP diastolic 52–85; PULSE 75–105; RESP 11–22; TEMP 36.1–36.8; O2SAT 98–100; BMI 42.0
[2023-10-28] MEDS: Lactated Ringers 1,000 ML 999 ML IV (05:25)
[2023-10-28 05:49] LABS: Absolute Lymphocyte Count 2.34 X10^3/uL (0.83-4.51); Absolute Neutrophil Count 5.7 X10^3/uL (2.0-7.7); Basophil# 0.01 X10^3/uL; Basophil% 0.1 % (0-1); Eosinophil# 0.05 X10^3/uL; Eosinophils% 0.6 % (0-5); Hematocrit 31.1 % (37-47); Hemoglobin 9.7 g/dL (12.0-15.0); Lymphocyte # 2.34 X10^3/ul (0.83-4.51); Mean Corp Hgb Conc 31.2 g/dL (32-36); Mean Corpuscular Hgb 24.3 pg (27.0-32.0); Mean Corpuscular Volume 77.8 fL (81-99); Mean Platelet Vol. 12.7 fl (6.2-12.0); Monocyte# 0.78 X10^3/uL; Monocyte% 8.7 % (0-10); NRBC Flagged by Analyzer 0 % (0-5); Neutrophil # 5.74 X10^3/uL (2.7-7.7); Neutrophil % 63.6 % (47-70); Platelet Count 232 K/mm3 (150-450); RBC Distribution Width CV 15.4 % (11.6-14.6); RBC Distribution Width SD 42.3 fl (35.1-43.9)
[2023-10-28] MEDS: Acetaminophen 500 MG Tablet 1000 MG PO ×3 (05:52→17:33)
[2023-10-28] MEDS: Lactated Ringers 1,000 ML 150 ML IV (05:52)
[2023-10-28] MEDS: Cefazolin 2 GM in 0.9% Normal Saline (100mL Bag) 100 ML IV (07:14)
[2023-10-28] MEDS: Sodium Citrate/Citric Acid 30 ML UDC PO (07:15)
--- NOTE | 2023-10-28 07:27 | HP.PCM.OB_ITS ---
HPI - General General Date of Admission: 10/28/23 HPI Narrative KELSEY KOWALSKI, is a 28 F who presents for RLTCS scheduled. declines TOLAC Maternal Data Information TAMMIE Calculator Estimated Delivery Date Method Current WG Current Estimate 11/01/23 Ultrasound #1 39w 3d PFSH PFSH Medical History (Updated 10/28/23 @ 05:21 by Keila Ramsey) depression Pelvic pain Blood in stool Anxiety and depression Home Medications ?Medication ?Instructions ?Recorded ?Last Taken ?Type PNV-iron 29 mg-folic acid 1 1 pkg PO DAILY 04/05/23 10/27/23 History yi-ryyxz-4-dha 200 mg oral combo pack aspirin 81 mg tablet,delayed 81 mg PO DAILY 04/05/23 10/27/23 History release citalopram 20 mg tablet (Celexa) 20 mg PO QDAY depression #90 tabs 09/04/23 10/27/23 Rx Allergy/AdvReac Type Severity Reaction Status Date / Time No Known Allergies Allergy Verified 10/28/23 05:21 Family History Grandmother Lung cancer Grandfather Pancreatic cancer Surgical History delivery delivered Social History adopted: No household members: significant other number of children: 1 current occupational status: employed 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 current occupational exposures/hazards: No pets and animals: Yes (Not managing litterbox) pets and animals: cat(s) history of recent travel: No sexually active: Yes Smoking Status: Never smoker alcohol intake: current alcohol intake frequency: a few times a month details: not while substance use type: does not use well-balanced diet: daily or most days caffeine: No eating out: rarely or never during the past year weight has: remained stable what type of physical activity do you participate in: none joellen/sabianism: None seatbelt use: always do you feel safe at home: Yes additional social history: BF Javier- locomotive engineer diesel History 2 Elective abortions Hx Para 1 Spontaneous abortions Hx # Term Pregnancies Ectopic pregnancies Hx # Pregnancies Multiple births # of living children 1 Past Pregnancies Del. Date Name GA/Weeks Outcome Route Bth Weight Gen Labor Lgth Anesthesia Del Silasatn Provider FOB 03/01/14 Bettie 41 live - full term Nico Morganvor Visit Details Expected Delivery Route/Plan RLTCS patient counseled regarding risks/benefits of trial of labor versus repeat . ACOG/uptodate education given to patient. [] % likelihood of success per calculator TOLAC consent form signed: [] Labor Preferences- CB/BF classes: no labor support person: aJvier labor intervention preferences: [] pain management options preferred: RLTCS cut cord/dad catch: [] : no PP control planned: discussed discussed possible routes of delivery and associated risks: [] special requests: [] Plans Covid status: + in Mar 2023, taking ASA Flu vaccine: declines Tdap vaccine: [] Rhogam: na LARC form signed: yes Problem list reviewed and updated with the most current plan of care details and appropriate orders placed. Relevant counseling for the gestational age provided. Continue routine care and follow up unless otherwise noted in visit notes/problem list details OB Flowsheet Initial Weight: 195 lb Date -?-?-?-?-?-?-?-?-?-?-?-?- EGA Weight BP Urine Prot -?-?-?-?-?-?-?-?-?-?-?-?- Glucose FHR FuHt Pres Dilation -?-?-?-?-?-?-?-?-?-?-?-?- Effaced St Visit Note 04/10/23 -?-?-?-?-?-?-?-?-?-?-?-?- 10w 5d 195 lb 8 oz (+8 oz) 118/82 -?-?-?-?-?-?-?-?-?-?-?-?- 180 -?-?-?-?-?-?-?-?-?-?-?-?- LC- CRL con with LMP. declines nipt. hx of PEC, baseline labs ordered. BMI 36, hbga1c ordered. start LDA for covid. 05/10/23 -?-?-?-?-?-?-?-?-?-?-?-?- 15w 0d 202 lb (+7 lb) 126/70 Negative -?-?-?-?-?-?-?-?-?-?-?-?- Negative 146 -?-?-?-?-?-?-?-?-?-?-?-?- LC- no vb/crampi ng. accepts afp.mfm ultrasound ordered. 07/12/23 -?-?-?-?-?-?-?-?-?-?-?-?- 24w 0d 215 lb (+20 lb) 128/72 Negative -?-?-?-?-?-?-?-?-?-?-?-?- Negative 140 24 -?-?-?-?-?-?-?-?-?-?-?-?- LC- no vb/ctx/lo f. good fm. scheduling additional cardiac views after obtaining new insurance in july. desires repeat c/s. again reiterated needing to schedule appt with physician. 08/09/23 -?-?-?-?-?-?-?-?-?-?-?-?- 28w 0d 222 lb 2 oz (+27 lb 2 oz) 110/70 Negative -?-?-?-?-?-?-?-?-?-?-?-?- Negative 150 28 -?-?-?-?-?-?-?-?-?-?-?-?- kw- no vb/lof/ct x. good fm. had labs-pending. R CS scheduled with SM 10/27. 08/20/23 -?-?-?-?-?-?-?-?-?-?--?-?- 29w 4d 221 lb (+26 lb) 221 lb (+26 lb) 132/83 132/83 Negative -?-?-?-?-?-?-?-?-?-?-?-?- Negative 140 -?-?-?-?-?-?-?-?-?-?-?-?- - co crmaping and pelvic pressure questionable lof, rom plus sent and negative bedsife fany 15 and monitoring and no ctx seen 09/04/23 -?-?-?-?-?-?-?-?-?-?-?-?- 31w 5d 226 lb 2 oz (+31 lb 2 oz) 122/64 Negative -?-?-?-?-?-?-?-?-?-?-?-?- Negative 154 31 -?-?-?--?-?-?-?-?-?-?-?-?- MH-No VB, LOF. G ood FM. Worsening anxiety. Wants to restart her celexa 09/18/23 -?-?-?-?-?-?-?-?-?-?-?-?- 33w 5d 227 lb 6 oz (+32 lb 6 oz) 118/78 Negative -?-?-?-?-?-?-?-?-?-?-?-?- Negative 155 34 -?-?-?-?-?-?-?-?-?-?-?-?- JV- still needs follow up scan of heart. will request growth also 10/01/23 -?-?-?-?-?-?-?-?-?-?-?-?- 35w 4d 233 lb (+38 lb) 118/73 Negative -?-?-?-?-?-?-?-?-?-?-?-?- Negative 135 37 -?-?-?-?-?-?-?-?-?-?-?-?- kw- US for growt h and Heart on saturday. no vb/lof/reg ctx. good fm. gbs next time 10/07/23 -?-?-?-?-?-?-?-?-?-?-?-?- 36w 3d 234 lb 4 oz (+39 lb 4 oz) 107/73 Negative -?-?-?-?-?-?-?-?-?-?-?-?- Negative 130 39 -?-?-?-?-?-?-?-?-?-?-?-?- KW- no vb/lof/ct x. good fm. GBS today. growth at 83% and fany 20. precautions given . R C/S scheduled with 10/15/23 -?-?-?-?-?-?-?-?-?-?-?-?- 37w 4d 235 lb (+40 lb) 112/75 Negative -?-?-?-?-?-?-?-?-?-?-?-?- Negative 156 42 -?-?-?-?-?-?-?-?-?-?-?-?- JV- pt is c/o vo miting on and off and feels pressure and cramping. was in over the weekend for IV fluids + zofran and imodium 10/21/23 -?-?-?-?-?-?-?-?-?-?-?-?- 38w 3d 237 lb (+42 lb) 118/81 118/81 Negative -?-?-?-?-?-?-?-?-?-?-?-?- Negative 140 40 0 -?-?-?-?-?-?-?-?-?-?-?-?- SM- still having diarrhea and nausea, intermittently throughout the day. will check labs today and recommend PCP eval. 10/22/23 -?-?-?-?-?-?-?-?-?-?-?-?- 38w 4d 237 lb 6 oz (+42 lb 6 oz) 118/78 Negative -?-?-?-?-?--?-?-?-?-?-?-?- Negative 150 -?-?-?-?-?-?-?-?-?-?-?-?- -work for head ache. Had diarrhea and improved. Some nausea. No vision changes. BP and urine normal. Had Pre E labs yesterday and normal. Did take tylenol without benefit. States avoid caffeine, makes diarrhea worse. Rx phenergan. Good FM. Call with worsening sx. CS is 10/27 NST FHR Rate Baby A Baseline: 140 Variability:: Moderate Accelerations:: 15 x 15 Decelerations:: None NST Reactive:: Yes FHR Category:: Category I Uterine Activity:: q3-5 ROS Constitutional Constitutional: Reports systems reviewed and no addt'l complaints, except as documented ENT HEENT: Reports systems reviewed and no addt'l complaints, except as documented Cardiovascular Cardiovascular: Reports systems reviewed and no addt'l complaints, except as documented Respiratory/Chest Respiratory/Chest: Reports systems reviewed and no addt'l complaints, except as documented Gastrointestinal Gastrointestinal: Reports systems reviewed and no addt'l complaints, except as documented and nausea; Denies abdominal pain Genitourinary Genitourinary: Reports systems reviewed and no addt'l complaints, except as documented, contractions Details: present and frequency (regular ) and movement Details: present Musculoskeletal Musculoskeletal: Reports systems reviewed and no addt'l complaints, except as documented Integumentary Integumentary: Reports as per HPI Neurologic Neurologic: Reports systems reviewed and no addt'l complaints, except as documented Endocrine Endocrinology: Reports systems reviewed and no addt'l complaints, except as documented Vital Signs Vital Signs Vital Signs: 10/28/23 05:20 10/28/23 05:20 10/28/23 05:20 Temperature Temperature Source Temporal Pulse Rate 105 H Respiratory Rate Blood Pressure 130/85 H Blood Pressure Mean BP Systolic 130 BP Diastolic 85 Blood Pressure Source Blood Pressure Position Blood Pressure Location Pulse Ox Oxygen Delivery Method 10/28/23 05:20 10/28/23 05:20 10/28/23 05:20 Temperature 97.9 F Temperature Source Pulse Rate Respiratory Rate 16 Blood Pressure Blood Pressure Mean BP Systolic BP Diastolic Blood Pressure Source Blood Pressure Position Blood Pressure Location Pulse Ox 98 Oxygen Delivery Method 10/28/23 05:25 Temperature 97.9 F Temperature Source Temporal Pulse Rate 105 H Respiratory Rate 16 Blood Pressure 130/85 H Blood Pressure Mean 100 BP Systolic BP Diastolic Blood Pressure Source Monitor Blood Pressure Position Semi-Fowlers Blood Pressure Location Right Arm Pulse Ox 98 Oxygen Delivery Method Room Air Weight Weight: 237 lb Body Mass Index (BMI) 42.0 Physical Exam Const alert, oriented x3 and healthy appearing Constitutional Narrative: uncomfortable with contractions HEENT normocephalic and moist oral mucous membranes Head and Scalp: atraumatic Neck full ROM, no lymphadenopathy, supple and thyroid normal General: trachea midline Thyroid: thyroid normal Lymph Lymphatic: no lymphadenopathy noted Chest inspection of chest normal Resp normal respiratory effort Cardio regular rate GI normal to inspection, nondistended, normoactive bowel sounds, soft to palpation and non-tender Inspection: gravid external exam normal Bimanual Exam - Vag & Uterus: uterus non-tender Manual OB Exam: estimated gestational size appropriate, presentation cephalic, dilated, effaced and station Extremity normal to inspection General Extremity: Negative for edema Skin no rashes or lesions noted Neuro deep tendon reflexes 2+ bilaterally Motor Exam: strength 5/5 throughout and clonus absent Psych mental status grossly normal Labs Labs Labs: Blood Type O POSITIVE Antibody Screen NEGATIVE Hct 31.1 % (37-47) L Hgb 9.7 g/dL (12.0-15.0) L Obstetrics Ultrasound Syphilis Total Ab Non-reactive Rubella IgG Antibody Reactive (Nonreactive) Hep Bs Antigen Non-Reactive (Nonreactive) Hepatitis C Antibody Non-Reactive (Nonreactive) Chlamydia DNA (MAGALI) Negative (Negative) N.gonorrhoeae DNA (MAGALI) Negative (Negative) HIV 1&2 Antibody Non-Reactive (Nonreactive) Glucose 1 Hr 50 gm 130 mg/dL (70-140) Rhogam given: No Miscellaneous Test Assessment & Plan (1) Hx of depression, currently : COMMENT: currently stable. Restarted celexa for anxiety. (2) : QUALIFIERS: Weeks of gestation: 37 weeks Qualified Code(s): Z3A.37 - 37 weeks gestation of COMMENT: GBS neg, normal anatomy, discussed genetic & carrier testing (3) Supervision of high-risk : QUALIFIERS: Trimester: third trimester Qualified Code(s): O09.93 - Supervision of high risk , unspecified, third trimester COMMENT: [id number], TAMMIE 11/01/23 RITIKA Alexandre BF/FOKojo Herrera (4) Hx of section: COMMENT: desires repeat cs 07/11. RLTCS scheduled for 10/27 @ 7:15 with SM d/t failure to progress IOL with PEC. 2013 (5) Obesity: COMMENT: hbga1c healthy weight gain in (6) Hx of pre-eclampsia in prior , currently : COMMENT: baseline labs- normal. (7) Anxiety: COMMENT: worsening sx. Restart celexa
--- NOTE | 2023-10-28 07:41 | OP.PCM_ITS ---
Assessment & Plan (1) delivery delivered: COMMENT: NISATCLouisa SM 39 Maternal Data Information TAMMIE Calculator Estimated Delivery Date Method Current WG Current Estimate 11/01/23 Ultrasound #1 39w 3d Final TAMMIE Source: LMP Details Operative Information Date of Procedure: 10/28/23 Pre-Operative Diagnosis: Previous Post-Operative Diagnosis: same Indications for : Repeat Elective Indications Narrative: Surgeon: Cierra Bill MD Classification: Scheduled Procedure Type: low transverse emt/dispatcher #1: Candelaria Nguyễn Type of Anesthesia: Spinal Special Medications: none Antibiotic Given: Ancef 2 grams IV x1 Drain: Cabrera to straight drain Estimated Blood Loss: 700 Fluids Replaced: crystalloid Procedure Start Time: 08:06 Procedure Stop Time: 08:45 Findings Description of Procedure: Spinal anesthesia was placed without difficulty. Cabrera catheter was placed. The patient was placed in the dorsal supine position with leftward tilt. Patient was prepped and draped in the normal sterile fashion. Pfannenstiel skin incision was made with the scalpel and carried through to the underlying layer of fascia with the scalpel. Fascia was nicked in the midline and the incision extended laterally. The rectus bellies were dissected off superiorly and inferiorly with out complication both sharply and bluntly.The peritoneum was entered digitally. significant uterine to abdomeinal wall adhesions encountered and taken down with the ligasure. The incision was stretched and a low transverse uterine incision was made with the scalpel. The infant's head was delivered atraumatically followed by the anterior and posterior shoulders without complication the rest of the delivered. The cord was clamped and cut and the infant was handed off to awaiting nurse. The placenta was delivered spontaneously immediately following and was noted to be intact and have a three- vessel cord. The uterus was exteriorized cleared of all clots and debris, and the incision was closed in a signle layer closure using #1 Monocryl. The ovaries and fallopian tubes were noted to be within normal limits. The uterus was returned to the maternal abdomen and gutters were cleared of all clots and debris. hemoblast applied. The peritoneum was closed with 3-0 Monocryl in a running fashion. Fascia was closed with 0 PDS in a running fashion. Subcutaneous tissue was copiously irrigated and the skin was closed with 3-0 Monocryl in a subcuticular fashion. Mepilex dressing was applied without complication. Patient was taken to recovery in stable condition. Amniotic Membrane Rupture Type: Artificial Amniotic Fluid Description: Clear Placenta Disposition: [facility] Cord Vessel Description: 3 Vessels Delayed Cord Clamping: Yes Complications Risks of Surgery Discussed w/Patient: Bleeding, Infection, Need for Future C- Sections and Injury to surrounding structure(s) including bowel and bladder Vaginal Delivery Complication Complications: None Admit VTE Documentation VTE Present on Admission: No VTE Mechan Device Prophylaxis: SCD's Procedures Urinary/Genital [id number]: [id number] delivery+PP Care([facility])
--- NOTE | 2023-10-28 07:45 | DCINST_ITS ---
Discharge Instructions Diet Discharge Diet: No restrictions Activity Discharge Activity: May Not Drive (for 2 weeks or while taking narcotic pain medications.), May Shower and May Take a Tub Bath (in 7 days) May shower in (days): 0 May resume sexual activity in: 4-6 weeks Weight Bearing Status: Full weight bearing Lifting Restrictions: 20 pounds Dressing / Incision Call your doctor if your incision/area has: Continuous Slow Oozing, Sudden Increased Bleeding, Increased Pain/ Swelling, Increased Redness and Foul Smelling Discharge Call your doctor if you observe: Fever of 101 or Higher and Using more than 1 pad per hour (for 2 hours) Suture Line Care: Avoid Pulling/Pushing and Avoid Pinching/Bending Cleanse incision/area with: Soap & Water and Keep Dressing Clean & Dry Follow Up Care Please Follow Up With: Cierra Bill MD When: Call [phone] to make an appointment for an incision check in 1-2 weeks. Test Results: Test results from this visit will be discussed in further detail at your follow- up appointment, if applicable. Discharge Plan Admission Admit Date/Time: 10/28/23 05:18 Attending Provider: Cierra Bill Primary Care Provider: Sherri Cheney SKIN GRADER Discharge Orders/Prescriptions Prescriptions: New oxycodone-acetaminophen [Percocet] 5-325 mg tablet 1 tab PO Q6H PRN (Reason: pain) 7 Days Qty: 20 0RF naproxen 500 mg tablet 500 mg PO BID PRN PRN (Reason: Pain) Qty: 30 1RF Continued citalopram [Celexa] 20 mg tablet 20 mg PO QDAY Qty: 90 3RF No Action PNV cmb 14-detw-LH-omega-3-dha 29 mg iron- 1 mg-200 mg combo pack 1 pkg PO DAILY aspirin 81 mg tablet,delayed release (DR/EC) 81 mg PO DAILY Referrals / Follow Up: Sherri Cheney SKIN GRADER, SKIN GRADER-C [Primary Care Provider] - Disposition Disposition (needs filled in before D/C Order can be placed): Home, Self Care
[2023-10-28 08:42] LABS: Syphilis Antibodies Non-reactive
[2023-10-28] MEDS: Oxytocin 15 Units/NS 250ml 15 UNITS/250 ML IV.SOLN 83 UNITS IV (09:00)
[2023-10-28] MEDS: Ketorolac 30 MG/ML Syringe IV ×3 (09:47→21:17)
[2023-10-28] MEDS: oxyCODONE 5 MG Tablet 10 MG PO ×2 (10:52→21:27)
[2023-10-28] MEDS: Lactated Ringers 1,000 ML 100 ML IV (12:15)
--- NOTE | 2023-10-28 14:29 | NURSING ---
Pt declined taking her Celexa and wanted to be switched back to Zoloft. Talked to Kayla at [place]'s office about patient's request. Waiting for a call back.
[2023-10-28] MEDS: Sertraline 50 MG Tablet PO (17:33)
[2023-10-28] MEDS: 0.9% Saline Lock 10 ML Syringe IV (21:17)
[2023-10-28] MEDS: Enoxaparin 40 MG/0.4 ML Syringe SC (21:17)
[2023-10-28] MEDS: SimETHICONE 80 MG Chewable Tablet PO (21:18)
[2023-10-29] MEDS: Acetaminophen 500 MG Tablet 1000 MG PO ×3 (00:06→12:47)
[2023-10-29] MEDS: oxyCODONE 5 MG Tablet 10 MG PO (01:44)
[2023-10-29] MEDS: Ketorolac 30 MG/ML Syringe IV (03:30)
[2023-10-29] MEDS: 0.9% Saline Lock 10 ML Syringe IV ×2 (03:30→09:48)
[2023-10-29 03:34] VITALS: BP 120/69; PULSE 82; RESP 16; TEMP 36.5; O2SAT 97
[2023-10-29 06:58] LABS: Hematocrit 27.4 % (37-47); Hemoglobin 8.3 g/dL (12.0-15.0); Mean Corp Hgb Conc 30.3 g/dL (32-36); Mean Corpuscular Hgb 23.8 pg (27.0-32.0); Mean Corpuscular Volume 78.5 fL (81-99); Mean Platelet Vol. 12.4 fl (6.2-12.0); Platelet Count 191 K/mm3 (150-450); RBC Distribution Width CV 15.7 % (11.6-14.6); RBC Distribution Width SD 44.5 fl (35.1-43.9); Red Blood Count 3.49 M/mm3 (4.2-5.4); White Blood Count 9.6 K/mm3 (4.4-11.0)
--- NOTE | 2023-10-29 08:05 | PCM.PN.OB ---
Subjective Subjective Patient doing well without complaints. Tolerating PO. Ambulating and voiding without difficulty. Feeding well. Denies chest pain, shortness of breath, calf pain/swelling, fevers, chills, lightheadedness. Objective Data Objective Data Vital Signs: Vital Signs Temp Pulse Resp BP Pulse Ox O2 Del Method 97.7 F L 82 16 120/69 97 Room Air 10/29/23 03:34 10/29/23 03:34 10/29/23 03:34 10/29/23 03:34 10/29/23 03:34 10/29/23 03:34 Oxygen Delivery Method Room Air Weight: 237 lb Body Mass Index (BMI) 42.0 Intake & Output: Intake and Output for Last 24 Hours 10/27/23 10/28/23 10/29/23 23:59 23:59 23:59 Intake Total 3460.0 / 3460.0 Output Total 2500 / 2500 400 / 400 Balance 960.0 / 960.0 -400 / -400 Lab / Micro Data 10/29/23 06:00 Labs: Laboratory Results - last 24 hr 10/28/23 05:25: Syphilis Total Ab Non-reactive 10/29/23 06:00: WBC 9.6, RBC 3.49 L, Hgb 8.3 L, Hct 27.4 L, MCV 78.5 L, MCH 23.8 L, MCHC 30.3 L, RDW Std Deviation 44.5 H, RDW Coeff of Rain 15.7 H, Plt Count 191, MPV 12.4 H Physical Exam Const alert and oriented x3 HEENT normocephalic Eyes PERRL Neck full ROM Resp normal respiratory effort GI soft to palpation GI Narrative: FF below U Assessment & Plan (1) delivery delivered: COMMENT: [facility] 39 Boy Anatoly (2) Hx of depression, currently : COMMENT: currently stable. Restarted celexa for anxiety. (3) Anemia: QUALIFIERS: Anemia type: iron deficiency Iron deficiency anemia type: unspecified iron deficiency Qualified Code(s): D50.9 - Iron deficiency anemia, unspecified PLAN: 8.3 pp:IV Venofer PLAN: Plan s/p LTCS PPD # 1 1. routine post care 2. breast feeding- support given 3. rh positive 4. rubella immune 5. IV fenofer today 6. home today
[2023-10-29 08:30] VITALS: BP 98/47; PULSE 80; RESP 16; TEMP 36.9; O2SAT 97
[2023-10-29] MEDS: Naproxen 500 MG Tablet PO (09:48)
[2023-10-29] MEDS: Senna/Docusate Sodium 1 Tablet PO (09:48)
[2023-10-29] MEDS: Sertraline 50 MG Tablet PO (09:48)
[2023-10-29] MEDS: Enoxaparin 40 MG/0.4 ML Syringe SC (09:48)
[2023-10-29] MEDS: IRON SUCROSE COMPLEX IV (09:49)
[2023-10-29] MEDS: NORMAL SALINE 0.9% IV (09:49)
[2023-10-29 14:23] VITALS: BP 100/54; PULSE 89; RESP 16; TEMP 36.1; O2SAT 99
--- NOTE | 2023-10-30 08:43 | CASEMGMT ---
Social Work Assessment Labor and Delivery Unit Patient Address: [facility] [place] [address] Phone number: [phone] Date of Referral: 10/29/23 Time of Referral:? 829 Referred By: Dr. Bill Date of Intervention: ?10/29/23? Time of Intervention:? 944 Reason for Referral:? anxiety, depression, depression Sw completed chart review and acknowledges social work consult due to maternal mental health history. Sw presented to bedside and introduced self to mother of baby (LUISA- Danyelle). Sw explained reason for sw involvement and completed psychosocial assessment. History obtained from: medical records, MOB Household composition: LUISA states that currently residing in her home is herself, father of baby (ESTER- Javier Kiran) and her 9 year old daughter, Bettie. [place] baby also to reside in residence when ready for discharge. MOB denies any issues or concerns with housing at this time. Patient's parent/guardian status:? ?LUISA states that she and ESTER have known each other since they were in high school together. MOB states that they have now been together for 4 years. LUISA reports that this is ESTER's first child, and her second. LUISA states that she was before and her daughter was a product of that marriage. MOB states that she is officially and denies any domestic violence or intimate partner violence. Medical History: ?LUISA is 28 year old female who is 2, para 1- now 2 following labor and delivery. LUISA received routine care during with [place]. LUISA presented to hospital on 10/28/23 for scheduled repeat at 39 weeks gestation. Baby boy, named Anatoly Meredith, was born weighing 9lb 10oz with apgars of 9 and 9 at one and five minutes of life, respectfully. LUISA states that she is bottle feeding and baby will be followed by Dr. Hinton for pediatrics. Educational Status:? LUISA obtained her GED and [employer] graduated high school. 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 Infant Supplies:?? Parents have obtained all necessary baby supplies, including: car seat, safe sleep space, clothes, diapers and wipes. Childcare/Caregiver(s):?MOB will be the primary caregiver to baby along with FOB when he is not working. MOB states that when both parents are at work baby will be cared for by her mom. Transportation:?? Both parents have their drivers license and reliable means of transportation. No barriers at this time. Programs/Agencies Involved: ??LUISA states that she has insurance through [employer] ([employer]) and is receiving WIC. ? Children Services/Legal Issues:??? MOB denies prior involvement wit Children Services, no issues or concerns warranting referral to be made at this time. Behavioral Health Issues: ??Mental Health History:??LUISA states that she has been diagnosed with anxiety, depression and has experienced depression following the of her daughter. MOB states that when her first baby was born she was not even 18 years old and had no clue what becoming a mom would look like. LUISA states that she was also in an unhealthy relationship and that significantly impacted her period. MOB states that at this time she feels good, she does not feel anxious or worried about anything. LUISA was started on zoloft during her , she reports that she can tell a big difference with it and she plans to stay on her medication during this time. LUISA denies any mental health diagnoses for FOB. ? Substance Use History:?LUISA denies substance use prior to or during . ? Family History:??LUISA denies family substance use or addiction issues, and is not aware of any significant mental health diagnoses. ??? Drug Screens: ??No drug screens observed in chart review. Family/Social Stressors:? LUISA denies any issues, concerns or stressors at this time. MOB statse that she is happy baby is here, she is aware of signs and symptoms of depression and anxiety to be on the lookout for. Support Systems: LUISA states that her mom is her biggest support person. Depression/Shaken Baby/Safe Sleeping:? Leola educated MOB to signs and symptoms of mood and anxiety disorders to be on the lookout for. Sw encouraged MOB to seek out support from her natural supports or from a mental health professional. MOB expressed understanding. MOB states that if she were to struggle during this period FOB would be able to recognize that she is struggling, but may not know how to help her. Sw encouraged MOB to have that conversation with FOB when discharged so that he would know what she needs if she were to experience any issues during this period. MOB expressed understanding. Sw educated MOB on shaken baby prevention and ABCs of safe sleep. MOB was provided literature to take home on all the above topics, as well as a list of county resources that are available to her, and information on Help Me Grow (denies linkage at this time). ASSESSMENT:? MOB and baby are admitted following labor and delivery. MOB with history of anxiety, depression and did experience depression following the delivery of her first child. MOB talkative and open to meeting with sw. MOB interactive in completion of psychosocial assessment. MOB has been with FOB for 4 years, and states that he would recognize if she were to struggle with her mental health during this period, but would now know how to help or support her. MOB was receptive to feedback on how to start the conversation with FOB and explain to him how he can be helpful. 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 PLAN:? MOB and baby to be discharged when medically ready. ?No other services requested or indicated. Roberto Antoine, BLIND INSTALLER, MANAGER OF MEDICAL
[2023-10-30 12:09] LABS: Hepatitis B Core Ab Total Negative (Negative)
[2023-10-31 17:33] LABS: HIV - WCH Non-Reactive (Nonreactive); Hepatitis B Surface Antibody Non-Reactive; Hepatitis B Surface Antigen Non-Reactive (Nonreactive); Hepatitis C Antibody Non-Reactive (Nonreactive)
== END 2023-10-29 14:52 | disposition home or self-care (01) | DRG 540 ==
PROVIDERS: Emergency Medicine; Admitting Provider Obstetrics & Gynecology; PCP Nurse Practitioner Family; Visit Provider Obstetrics & Gynecology
PROC: 10D00Z1 Extraction of Products of Conception, Low, Open Approach (ICD-10-PCS; CPT 59514; principal; 2023-10-28 07:00)
DX: O34.211 Maternal care for low transverse scar from previous cesarean delivery (principal); E66.9 Obesity, unspecified; D50.9 Iron deficiency anemia, unspecified; F41.9 Anxiety disorder, unspecified; O99.344 Other mental disorders complicating childbirth; O99.214 Obesity complicating childbirth; O90.81 Anemia of the puerperium; Z3A.37 37 weeks gestation of pregnancy; Z37.0 Single live birth; Z79.82 Long term (current) use of aspirin; Z79.899 Other long term (current) drug therapy
CPT/HCPCS: 59025; 59050; 85025; 85027; 86703; 86704; 86706; 86780; 86803; 86850; 86900; 86901; 87340; 99221; J1756; J7120; A4216; G0378

== ENCOUNTER → 2024-03-17 | Outpatient (CLI) | payer MEDICAID, SELFPAY ==
[2024-03-17 17:38] LABS: Hematocrit 41.6 % (37-47); Mean Corp Hgb Conc 31.3 g/dL (32-36); Mean Corpuscular Hgb 25.8 pg (27.0-32.0); Mean Corpuscular Volume 82.5 fL (81-99); Platelet Count 262 K/mm3 (150-450); RBC Distribution Width CV 14.6 % (11.6-14.6); RBC Distribution Width SD 43.6 fl (35.1-43.9); Red Blood Count 5.04 M/mm3 (4.2-5.4); White Blood Count 7.8 K/mm3 (4.4-11.0)
[2024-03-17 18:26] LABS: AST(SGOT) 33 U/L (15-37); Alanine Aminotransfer ALT/SGPT 49 U/L (13-56); Albumin, Serum 3.9 g/dL (3.2-5.0); Alkaline Phosphatase 111 U/L (45-117); Anion Gap 9 (5-15); BUN 8 mg/dL (7-18); BUN/Creat Ratio 11.9 RATIO (10-20); Calcium,Total 9.4 mg/dL (8.5-10.1); Chloride 107 mmol/L (98-107); Creatinine, Serum 0.68 mg/dL (0.55-1.02); EST Glomerular Filtration Rate 110 mL/min (>60); Est Glom Filt Rate - Afr Amer 133 mL/min (>60); Globulin 4.1 g/dL (2.2-4.2); Glucose 73 mg/dL (74-106); Potassium 3.5 mmol/L (3.5-5.1); Sodium Level 139 mmol/L (136-145)
[2024-03-19 15:09] LABS: Deamidated Gliadin IgA 50 units (0-19); Deamidated Gliadin IgG 5 units (0-19); Endomysial Antibody IgA Negative (Negative); Immunoglobulin A 352 mg/dL (87-352); t-Transglutaminase IgA 4 U/mL (0-3)
[2024-03-23 05:06] LABS: Beef <0.10 kU/L (Class 0); Chocolate <0.10 kU/L (Class 0); Codfish <0.10 kU/L (Class 0); Corn <0.10 kU/L (Class 0); Egg, Whole <0.10 kU/L (Class 0); Milk (Cow) <0.10 kU/L (Class 0); Mussels <0.10 kU/L (Class 0); Peanut <0.10 kU/L (Class 0); Pork <0.10 kU/L (Class 0); Salmon <0.10 kU/L (Class 0); Shrimp <0.10 kU/L (Class 0); Soybean <0.10 kU/L (Class 0); Tuna <0.10 kU/L (Class 0); Wheat <0.10 kU/L (Class 0)
== END | disposition home or self-care (01) ==
LOC: MFPLAB 14:02
DX: R19.7 Diarrhea, unspecified (principal)
CPT/HCPCS: 36415; 80053; 82784; 83516; 84443; 85027; 86003; 86005; 86255

== ENCOUNTER → 2024-05-20 | Outpatient (CLI) | payer MEDICAID, SELFPAY ==
--- NOTE | 2024-05-20 14:17 | US_ITS ---
STUDY: ULTRASOUND BREAST - LEFT REASON FOR EXAM: Female, 29 years old. Periareolar pain with discharge. TECHNIQUE: Axial and longitudinal images of the LEFT breast were performed with a high resolution ultrasound transducer. # OF IMAGES: 47 COMPARISON: Comparison is made with prior mammogram done earlier today. FINDINGS: LEFT Breast: The retroareolar region as well as the left upper outer quadrant was examined with ultrasound. No sonographic abnormality is seen. US/Breast Limited Unilateral IMPRESSION: No sonographic abnormality is seen. ASSESSMENT CATEGORY: BIRADS Category 1: Negative. A letter regarding these results will be sent to the patient by the facility within 30 days. Electronically Signed: Karan Egan MD at 9:58 EST ,
--- NOTE | 2024-05-20 14:17 | BI_ITS ---
MAMMOGRAPHY - BILATERAL DIAGNOSTIC REASON FOR EXAM: Female, 29 years old. Left breast pain. Left nipple discharge. PERTINENT HISTORY: Grandmother with breast cancer. TECHNIQUE: Digital bilateral breast jean paul (3D mammographic acquisition) in the CC and MLO projections. 2-D mediolateral oblique (MLO) and craniocaudad (CC) views of both breasts were obtained. CAD: Full Field Digital Mammography with Computer Added Detection was performed. COMPARISON: None. Baseline examination. FINDINGS: Breast Composition: The breasts are extremely dense, which lowers the sensitivity of mammography. There are no dominant masses or suspicious calcifications. No other significant abnormalities are identified. BI/DIAG MAMM W/CAD, BILAT IMPRESSION: Negative diagnostic mammogram. With the patient''s history of left breast pain and discharge, targeted sonographic correlation recommended. ASSESSMENT CATEGORY: BIRADS Category 0: Incomplete. Need additional imaging evaluation. A letter regarding these results will be sent to the patient by the facility within 30 days. Approximately 10% of breast cancers are not detected by mammography. A normal mammogram should not delay biopsy of a clinically suspicious abnormality. Electronically Signed: Karan Egan MD at 9:24 EST ,
== END | disposition home or self-care (01) ==
LOC: OPBI 14:14
PROVIDERS: PCP Family Medicine; Referring Provider Family Medicine; Visit Provider Family Medicine
DX: N64.4 Mastodynia (principal); Z80.3 Family history of malignant neoplasm of breast
CPT/HCPCS: 77061; 77065; 76642; 77066; G0279